=== PATIENT | female | born 1960 | race Caucasian/White ===

== ENCOUNTER 2019-06-20 13:14 | Emergency (ER) | payer SELFPAY ==
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
[2019-06-20 13:34] VITALS: BP 167/108; PULSE 99; RESP 20; TEMP 37; O2SAT 95; BMI 31.6
--- NOTE | 2019-06-20 13:37 | PC.NURSE ---
Pt sits up in bet quickly, changes position quickly, rotates and uses emphatic gestures when speaking. Pt does not use any non-verbal queues recognizable to this nurse to indicate pain according to faces. Pt rates pain at a 9/10.
== END 2019-06-20 14:58 | disposition home or self-care (01) ==
PROVIDERS: Emergency Provider Emergency Medicine; PCP Family Medicine
DX: M54.5 Low back pain (principal); M54.9 Dorsalgia, unspecified; Y99.0 Civilian activity done for income or pay
CPT/HCPCS: 99282; 99283

== ENCOUNTER 2020-03-26 03:01 | Emergency (ER) | payer SELFPAY ==
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
[2020-03-26 03:11] VITALS: PULSE 80; O2SAT 92
[2020-03-26 03:19] VITALS: BP 161/105; PULSE 101; RESP 18; TEMP 36.1; O2SAT 98
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
--- NOTE | 2020-03-26 03:56 | PC.NURSE ---
Pt unable to obtain XR, pt refused to move over to table, refused to take her pants off for XR. Dr Lockhart made aware.
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
== END 2020-03-26 04:57 | disposition home or self-care (01) ==
PROVIDERS: Emergency Provider Emergency Medicine; PCP Family Medicine
DX: M25.551 Pain in right hip (principal)
CPT/HCPCS: 73502; 99283